=== PATIENT | male | born 1945 | race Caucasian/White ===

== ENCOUNTER 2017-10-27 10:03 | Day surgery (SDC) | payer OTHER ==
[2017-10-27] MEDS ORDERED: Lactated Ringer's 1,000 ML IV ONE (10:56)
[2017-10-27] MEDS ORDERED: Propofol 10 mg/ml Inj (20 ML) ONE (11:36)
[2017-10-27] MEDS ORDERED: Lidocaine 2% MPF (5 ml) Inj ONE (11:36)
[2017-10-27 12:09] VITALS: TEMP 98
[2017-10-27 12:22] VITALS: BP 111/56; PULSE 99; RESP 27; O2SAT 95
== END 2017-10-27 12:28 | disposition home or self-care (01) ==
LOC: H.ENDO 10:03
PROVIDERS: ATTEND Internal Medicine Gastroenterology
DX: Z12.11 Encounter for screening for malignant neoplasm of colon (principal); D12.0 Benign neoplasm of cecum; R19.5 Other fecal abnormalities; K57.92 Diverticulitis of intestine, part unspecified, without perforation or abscess without bleeding
CPT/HCPCS: 45380; 45385; 88305; J2704; J7120